=== PATIENT | male | born 1975 | race Asian ===

== ENCOUNTER 2018-06-10 12:42 | Emergency (ER) | payer BC ==
[~2018-06-10] VITALS: Ht 162.6 cm; Wt 104.3 kg
[2018-06-10 14:05] VITALS: BP 135/75; TEMP 98
== END 2018-06-10 14:10 | disposition home or self-care (01) ==
LOC: ED 12:42
DX: T63.461A Toxic effect of venom of wasps, accidental (unintentional), initial encounter (principal)
CPT/HCPCS: 36415; 96365; 96372; 96374; 99284; J1020; J1200; J2930

== ENCOUNTER 2018-09-08 17:25 | Emergency (ER) | payer OTHER ==
[~2018-09-08] VITALS: Ht 162.6 cm; Wt 113.4 kg
[2018-09-08 17:30] VITALS: BP 181/98; TEMP 98.9
== END 2018-09-08 20:27 | disposition home or self-care (01) ==
LOC: ED 17:25
DX: M25.511 Pain in right shoulder (principal)
CPT/HCPCS: 99282; J1885

== ENCOUNTER 2019-03-06 19:00 | Emergency (ER) | payer OTHER ==
[~2019-03-06] VITALS: Ht 162.6 cm; Wt 113.4 kg
[2019-03-06 20:31] LABS: PLATELET COUNT 201 K/uL (142-355)
[2019-03-06 20:35] LABS: POTASSIUM 3.9 mmol/L (3.6-5.2)
[2019-03-06 20:42] LABS: PARTIAL THROMBOPLASTIN TIME 23.1 SECONDS (24.5-33.6)
[2019-03-06 23:24] VITALS: BP 147/96; TEMP 98.8
== END 2019-03-06 23:27 | disposition home or self-care (01) ==
LOC: ED 19:00
PROVIDERS: Family Medicine
DX: R10.31 Right lower quadrant pain (principal); K83.1 Obstruction of bile duct; K40.90 Unilateral inguinal hernia, without obstruction or gangrene, not specified as recurrent
CPT/HCPCS: 36415; 80053; 81000; 85027; 85610; 85730; 96360; 96375; 99284; J1885; J2405; Q9963

== ENCOUNTER 2021-07-03 04:03 | Emergency (ER) | payer OTHER ==
[~2021-07-03] VITALS: Ht 167.6 cm; Wt 117.9 kg
[2021-07-03 04:55] VITALS: BP 168/95; TEMP 98.4
== END 2021-07-03 05:00 | disposition home or self-care (01) ==
LOC: ED 04:03
DX: K64.8 Other hemorrhoids (principal); K62.89 Other specified diseases of anus and rectum
CPT/HCPCS: 96372; 99282; J1885

== ENCOUNTER 2021-07-06 20:19 | Emergency (ER) | payer OTHER ==
[~2021-07-06] VITALS: Ht 167.6 cm; Wt 117.9 kg
[2021-07-06 21:45] VITALS: BP 162/94; TEMP 98.9
== END 2021-07-06 21:45 | disposition home or self-care (01) ==
LOC: ED 20:19
DX: K60.2 Anal fissure, unspecified (principal)
CPT/HCPCS: 99282

== ENCOUNTER 2023-04-02 22:23 | Emergency (ER) | payer OTHER ==
[~2023-04-02] VITALS: Ht 167.6 cm; Wt 111.1 kg
[2023-04-02 22:40] VITALS: TEMP 98.2
[2023-04-02 23:17] LABS: PLATELET COUNT 221 K/uL (142-355)
[2023-04-02 23:21] LABS: POTASSIUM 3.7 mmol/L (3.6-5.2)
[2023-04-03 00:34] VITALS: BP 146/90
== END 2023-04-03 00:34 | disposition home or self-care (01) ==
LOC: ED 22:23
PROVIDERS: Family Medicine
DX: T67.5XXA Heat exhaustion, unspecified, initial encounter (principal); E86.0 Dehydration; X30.XXXA Exposure to excessive natural heat, initial encounter; Y93.H9 Activity, other involving exterior property and land maintenance, building and construction; Y92.9 Unspecified place or not applicable; Y99.9 Unspecified external cause status
CPT/HCPCS: 36415; 80053; 81002; 82550; 84484; 85027; 96360; 99284